=== PATIENT | female | born 1985 | race Caucasian/White ===

== ENCOUNTER 2019-05-15 07:50 | Emergency (ER) | payer BC ==
[2019-05-15] MEDS ORDERED: IBUPROFEN 600 MG TABLET PO ONE (07:55)
[2019-05-15] MEDS ORDERED: ACETAMINOPHEN 500 MG TABLET PO ONE (07:55)
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
[2019-05-15] MEDS ORDERED: HYDROCODONE/APAP 5/325MG TABLET PO ONE (09:32)
--- NOTE | 2019-05-16 07:28 | RADIOLOGY REPORT ---
EXAM: LEFT WRIST, THREE VIEWS HISTORY: PATIENT HAS A HISTORY OF FALL. TECHNIQUE: Three views of the left wrist are provided without comparison examinations. FINDINGS: There is a comminuted impacted fracture of the distal radial metaphysis extending to the radial carpal articular surface. There is moderate dorsal angulation of the distal fracture fragment. No significant displacement of the fracture fragments are noted. The visualized ulna is unremarkable. The carpal bones appear intact. IMPRESSION: POST TRAUMATIC CHANGES OF THE DISTAL LEFT WRIST ARE NOTED DISCUSSED ABOVE. JOB NUMBER: [id number] [facility]
--- NOTE | 2019-05-16 07:32 | RADIOLOGY REPORT ---
EXAM: LEFT WRIST, TWO VIEWS HISTORY: PATIENT HAS A HISTORY OF FALL. TECHNIQUE: Two views of the left wrist are provided along with the comparison study dated 05/15/19. FINDINGS: There is again identified a comminuted, impacted fracture of the distal radial metaphysis with extension to the articular surface. The alignment of the distal fracture fragments appears improved with respect to the prior examination. There is now mild dorsal angulation of the distal fracture fragment. As noted on the prior examination, the distal ulna appears intact. The visualized carpal bones appear intact. IMPRESSION: IMPROVED ALIGNMENT OF THE DISTAL RADIAL FRACTURE WITH RESPECT TO THE PRIOR EXAMINATION ON THIS POST REDUCTION EXAMINATION. JOB NUMBER: [id number] [facility]
== END 2019-05-15 10:08 | disposition home or self-care (01) ==
LOC: ER 07:50
DX: S52.502A Unspecified fracture of the lower end of left radius, initial encounter for closed fracture (principal); W51.XXXA Accidental striking against or bumped into by another person, initial encounter; Y92.009 Unspecified place in unspecified non-institutional (private) residence as the place of occurrence of the external cause
CPT/HCPCS: 25605; 99284

== ENCOUNTER 2019-05-19 10:32 | Day surgery (SDC) | payer BC ==
[~2019-05-19 10:32] MED LIST: ACETAMINOPHEN 1,000 MG/100 ML BTL IVPB ONE
[2019-05-19] MEDS ORDERED: LIDOCAINE 2% MDV (20MG/ML) 20ML VIAL IV ONE (10:33)
[2019-05-19] MEDS ORDERED: HYDROMORPHONE HCL 2 MG/ML VIAL IV ONE (10:33)
[2019-05-19] MEDS ORDERED: SEVOFLURANE 250 ML INH ONE (10:33)
[2019-05-19] MEDS ORDERED: KETOROLAC 30 MG/ML VIAL IVP ONE (10:33)
[2019-05-19] MEDS ORDERED: PROPOFOL 10 MG/ML VIAL IV ONE (10:33)
[2019-05-19] MEDS ORDERED: RINGERS SOLUTION,LACTATED 1,000 ML IV ONE (11:15)
[2019-05-19] MEDS ORDERED: OXYCODONE HCL/APAP 5MG/325MG TABLET PO ONE (13:01)
--- NOTE | 2019-05-20 11:20 | Operative Note ---
DATE OF SURGERY: 05/19/2019 SURGEON: Jamaal Ellis DO PREOPERATIVE DIAGNOSIS: Comminuted fracture of the left distal radius, displaced. POSTOPERATIVE DIAGNOSIS: Comminuted fracture of the left distal radius, displaced. OPERATION: Closed reduction and percutaneous pinning of left distal radius. DESCRIPTION OF PROCEDURE: This 34-year-old female was taken to the operating room and placed in the supine position on the operating room table. General anesthetic was administered. The left upper extremity was brought under the image intensifier. Closed reduction of the fracture of the left distal radius was performed. The left upper extremity was then prepped with Hibiclens and draped in the usual sterile fashion. With the image intensifier sterilely draped in the operative field. The previously closed reduced wrist was appropriately positioned and a 0.054 K wire was advanced from the radial styloid across the fracture and into the medial border of the distal radius proximal to the fracture. The image intensifier was then used to visualize the pin in the appropriate position with the fracture reduced satisfactorily. Then a second pin was used nearly parallel to the first and this was placed across the fracture site for additional stability. Once the pins were satisfactorily positioned, the image intensifier was used to confirm the position and alignment of the fracture fragments as well as the position of the pins and found to be satisfactory. The pins were then bent over and then cut off and pin caps were placed with sterile dressings and plaster splint immobilization was applied. The patient was taken to the recovery room in satisfactory condition. GROSS PATHOLOGY: This patient demonstrated a comminuted fracture of the left distal radius with some intraarticular displacement of the comminuted fragments. This was closed reduced in the manner described above and it felt like the fracture was essentially anatomically reduced. Then the K wires were advanced across the fracture as described above. The final position and alignment appeared to be satisfactory. MATD
== END 2019-05-19 13:25 | disposition home or self-care (01) ==
LOC: SUR 10:32
PROVIDERS: ATTEND Orthopaedic Surgery
DX: S52.352A Displaced comminuted fracture of shaft of radius, left arm, initial encounter for closed fracture (principal); F17.210 Nicotine dependence, cigarettes, uncomplicated
CPT/HCPCS: 25606; 01820; 81025; J1885; J1170; J7120